=== PATIENT | female | born 1960 | race American Indian/Alaskan Native ===

== ENCOUNTER 2017-11-24 07:22 | Emergency (ER) | payer SELFPAY ==
--- NOTE | 2017-11-24 08:57 | Emergency Department Report ---
ED Back Pain/Injury HPI - General Chief Complaint: Extremity Injury, Lower Stated Complaint: LOWER MUSCLE/RT LEG PAIN Time Seen by Provider: 11/24/17 08:03 Source: patient Limitations: No Limitations - History of Present Illness Initial Comments: This 57-year-old -[place] female who presents with chronic low back pain with sciatica. Patient states she just moved here from [place] on Friday and during the drive here her back pain increased. She states now she is having sciatic nerve pain radiating from lower back to right thigh. Patient reports pain is 9 out of 10 on pain scale and a burning and throbbing sensation. Patient has a history of diabetes type 2 and hypertension. Patient states she was getting steroid injections and muscle relaxers while she was in [place]. Patient states muscle relaxers were packed away and she can't find a requesting a refill on muscle relaxers to help ease pain. Patient states she NSAID's alone with no improvement of symptoms. Patient is also requesting referral to a primary care provider to manage chronic pain. She also admits to having numbness and tingling but this is chronic and related to diabetes. She denies swelling, erythema, deformity, change in voiding or bowel pattern, and chest pain. MD Complaint: back pain Onset/Timin -: days(s) Similar Symptoms Previously: Yes Place: street Radiation: right leg Severity: severe Severity scale (0 -10): 9 Quality: burning, tingling Consistency: constant Improves With: none Worsens With: movement, sitting upright Context: unknown Associated Symptoms: denies other symptoms Treatments Prior to Arrival: NSAIDS - Related Data Previous Rx's Medication Instructions Recorded Last Taken Type Cyclobenzaprine [Flexeril 10 MG 10 mg PO TID PRN #15 tablet 11/24/17 Unknown Rx TAB] Ibuprofen [Motrin 800 MG tab] 800 mg PO Q8HR PRN #15 tablet 11/24/17 Unknown Rx Allergies Allergy/AdvReac Type Severity Reaction Status Date / Time No Known Allergies Allergy Unverified 11/24/17 07:37 ED Review of Systems ROS: Stated complaint: LOWER MUSCLE/RT LEG PAIN Other details as noted in HPI Constitutional: denies: chills, fever Respiratory: denies: cough, shortness of breath, wheezing Cardiovascular: denies: chest pain, palpitations Gastrointestinal: denies: abdominal pain, nausea, vomiting, diarrhea Musculoskeletal: back pain (low back pain radiating to right lower extremity). denies: joint swelling, arthralgia Skin: denies: rash, lesions Neurological: denies: headache, weakness, paresthesias Psychiatric: denies: anxiety, depression ED Back Pain Physical Exam - Exam General: Vital signs noted. No distress. Alert and acting appropriately. Back/Abdomen: Yes Sacroiliac Tenderness (tenderness above the right sacroiliac joint on deep palpation), Yes Straight Leg Raise Pain (right lower extremity), No Abdominal Tenderness, No Perithoracic Tenderness, No Perilumbar Tenderness, No Flank Tenderness Neuro: Yes Normal Sensation, Yes Normal DTR's, Yes Normal Gait, No Motor Weakness ED Course Vital Signs 11/24/17 07:37 Temperature 97.9 F Pulse Rate 94 H Respiratory 14 Rate Blood Pressure 175/85 O2 Sat by Pulse 97 Oximetry ED Medical Decision Making - Medical Decision Making This is a 57-year-old female who presents with chronic low back pain radiating to right lower extremity that was aggravated yesterday. Patient was examined by me. Vitals are normal and patient is in no acute distress. No radiograph obtained. Glucose 199. Patient is currently taken insulin and metformin for management of diabetes. On physical assessment is susceptible of acute low back pain with right lower extremity sciatica. Start ibuprofen and cyclobenzaprine for pain. Plan discussed with patient to discharge home and treat outpatient. Patient discharged home in stable condition. Referrals to [facility] for continuous of care. Patient should follow-up with [facility] in 2-3 days. Critical care attestation.: If time is entered above; I have spent that time in minutes in the direct care of this critically ill patient, excluding procedure time. ED Disposition Clinical Impression: Chronic low back pain with right-sided sciatica Qualifiers: Back pain laterality: bilateral Qualified Code(s): M54.41 - Lumbago with sciatica, right side; G89.29 - Other chronic pain Disposition: TO HOME OR SELFCARE Is pt being admited?: No Does the pt Need Aspirin: No Condition: Stable Instructions: Lumbar Radiculopathy (ED), Sciatica (ED) Additional Instructions: Rest Use ice or heat on affected area for 20 minutes and off for 2 hours. Take pain medication as needed for pain. Don't drive or operate heavy machinery while taking muscle relaxers because they may cause drowsiness. Follow up with Primary Care Provider is [facility] in 2-3 days for continuing care. Prescriptions: Cyclobenzaprine [Flexeril 10 MG TAB] 10 mg PO TID PRN #15 tablet PRN Reason: Muscle Spasm Ibuprofen [Motrin 800 MG tab] 800 mg PO Q8HR PRN #15 tablet PRN Reason: Pain , Severe (7-10) Referrals: [facility] [Outside] - 3-5 Days [facility] [Outside] - 3-5 Days [facility] [Outside] - 3-5 Days Time of Disposition: 09:02 Print Language: SINHALA
[2017-11-24 09:13] VITALS: BP 171/81
== END 2017-11-24 09:12 | disposition home or self-care (01) ==
LOC: ED 07:22
DX: M54.41 Lumbago with sciatica, right side (principal); G89.29 Other chronic pain; E11.9 Type 2 diabetes mellitus without complications; Z79.4 Long term (current) use of insulin; Z79.84 Long term (current) use of oral hypoglycemic drugs
CPT/HCPCS: 82962; 99282

== ENCOUNTER 2018-01-05 15:49 | Emergency (ER) | payer SELFPAY ==
[2018-01-05 16:02] VITALS: BP 199/89
[2018-01-05] MEDS ORDERED: DECADRON ONE (18:21)
[2018-01-05] MEDS ORDERED: ULTRAM ONE (18:22)
[2018-01-05] MEDS ORDERED: ULTRAM PO ONE (18:22)
--- NOTE | 2018-01-05 18:22 | Emergency Department Report ---
ED Back Pain/Injury HPI - General Chief Complaint: Back Pain/Injury Stated Complaint: BACK PAIN Time Seen by Provider: 01/05/18 18:10 Source: patient Limitations: No Limitations - History of Present Illness Initial Comments: Patient presents to the emergency department with low back pain for the last 1- 2 weeks. Patient states she has a chronic issue with back pain and recently moved from [place] and has not had any primary care follow-up while in [place]. Patient states she works at [employer] and is constantly bending and picking up things which exacerbates her back pain. Patient denies any issues with bladder or bowel. Patient also denies any numbness in the urogenital region region Complaint: back pain -: Gradual Place: home Radiation: none Severity: moderate Severity scale (0 -10): 6 Quality: dull Consistency: constant Improves With: sitting upright Worsens With: movement Associated Symptoms: denies other symptoms - Related Data Previous Rx's Medication Instructions Recorded Last Taken Type Cyclobenzaprine [Flexeril 10 MG 10 mg PO TID PRN #15 tablet 11/24/17 Unknown Rx TAB] Ibuprofen [Motrin 800 MG tab] 800 mg PO Q8HR PRN #15 tablet 11/24/17 Unknown Rx Acetaminophen/Codeine [Tylenol 1 tab PO Q6H PRN #15 tab 01/05/18 Unknown Rx /Codeine # 3 tab] Ibuprofen [Motrin] 800 mg PO Q8HR PRN #30 tablet 01/05/18 Unknown Rx predniSONE [Deltasone] 20 mg PO QDAY #15 tab 01/05/18 Unknown Rx Allergies Allergy/AdvReac Type Severity Reaction Status Date / Time No Known Allergies Allergy Unverified 11/24/17 07:37 ED Review of Systems ROS: Stated complaint: BACK PAIN Other details as noted in HPI Constitutional: denies: chills, fever Eyes: denies: eye pain, eye discharge, vision change ENT: denies: ear pain, throat pain Respiratory: denies: cough, shortness of breath, wheezing Cardiovascular: denies: chest pain, palpitations Endocrine: no symptoms reported Gastrointestinal: denies: abdominal pain, nausea, diarrhea Genitourinary: denies: urgency, dysuria, discharge Musculoskeletal: denies: back pain, joint swelling, arthralgia Skin: denies: rash, lesions Neurological: other (back pain). denies: headache, weakness, paresthesias Psychiatric: denies: anxiety, depression Hematological/Lymphatic: denies: easy bleeding, easy bruising ED Past Medical Hx - Past Medical History Hx Hypertension: Yes Hx Diabetes: Yes - Surgical History Hx Cholecystectomy: Yes Additional Surgical History: tubal ligation - Social History Smoking Status: Current Every Day Smoker Substance Use Type: None - Medications Home Medications: Home Medications Medication Instructions Recorded Confirmed Last Taken Type Cyclobenzaprine [Flexeril 10 MG 10 mg PO TID PRN #15 tablet 11/24/17 Unknown Rx TAB] Ibuprofen [Motrin 800 MG tab] 800 mg PO Q8HR PRN #15 tablet 11/24/17 Unknown Rx Acetaminophen/Codeine [Tylenol 1 tab PO Q6H PRN #15 tab 01/05/18 Unknown Rx /Codeine # 3 tab] Ibuprofen [Motrin] 800 mg PO Q8HR PRN #30 tablet 01/05/18 Unknown Rx predniSONE [Deltasone] 20 mg PO QDAY #15 tab 01/05/18 Unknown Rx ED Physical Exam - General Limitations: No Limitations General appearance: alert, in no apparent distress - Head Head exam: Present: atraumatic, normocephalic - Eye Eye exam: Present: normal appearance, PERRL, EOMI - ENT ENT exam: Present: mucous membranes moist - Neck Neck exam: Present: normal inspection - Respiratory Respiratory exam: Present: normal lung sounds bilaterally. Absent: respiratory distress, wheezes, rales, rhonchi - Cardiovascular Cardiovascular Exam: Present: regular rate, normal rhythm. Absent: systolic murmur, diastolic murmur, rubs, gallop - GI/Abdominal GI/Abdominal exam: Present: soft, normal bowel sounds. Absent: distended, tenderness - Extremities Exam Extremities exam: Present: normal inspection - Back Exam Back exam: Present: normal inspection, other (tenderness to palpation of the lumbar spine) - Neurological Exam Neurological exam: Present: alert, oriented X3 - Psychiatric Psychiatric exam: Present: normal affect, normal mood - Skin Skin exam: Present: warm, dry, intact, normal color. Absent: rash ED Course Vital Signs 01/05/18 15:58 Temperature 98.1 F Pulse Rate 114 H Respiratory 18 Rate Blood Pressure 199/89 O2 Sat by Pulse 98 Oximetry ED Medical Decision Making - Medical Decision Making Discussed plan of care WITH patient Critical care attestation.: If time is entered above; I have spent that time in minutes in the direct care of this critically ill patient, excluding procedure time. ED Disposition Clinical Impression: Low back strain, Chronic back pain Disposition: TO HOME OR SELFCARE Is pt being admited?: No Does the pt Need Aspirin: No Condition: Stable Instructions: Low Back Strain (ED), Back Pain (ED), Chronic Back Pain (ED) Additional Instructions: RETURN IF WORSE Prescriptions: Acetaminophen/Codeine [Tylenol /Codeine # 3 tab] 1 tab PO Q6H PRN #15 tab PRN Reason: PAIN Ibuprofen [Motrin] 800 mg PO Q8HR PRN #30 tablet PRN Reason: PAIN predniSONE [Deltasone] 20 mg PO QDAY #15 tab Referrals: PRIMARY CAREMD [Primary Care Provider] - 3-5 Days COLEEN PACHECO MD [Staff Physician] - 3-5 Days [facility] [Provider Group] - 3-[address] [facility] [Provider Group] - 3-5 Days Time of Disposition: 18:22
[2018-01-05] MEDS ORDERED: DECADRON IV ONE (18:23)
== END 2018-01-05 18:42 | disposition home or self-care (01) ==
LOC: ED 15:49
DX: S39.012A Strain of muscle, fascia and tendon of lower back, initial encounter (principal); G89.29 Other chronic pain; I10 Essential (primary) hypertension; E11.9 Type 2 diabetes mellitus without complications; F17.200 Nicotine dependence, unspecified, uncomplicated; Z90.49 Acquired absence of other specified parts of digestive tract; Z98.51 Tubal ligation status; X50.1XXA Overexertion from prolonged static or awkward postures, initial encounter; Y93.89 Activity, other specified; Y99.0 Civilian activity done for income or pay; Y92.69 Other specified industrial and construction area as the place of occurrence of the external cause
CPT/HCPCS: 96374; 99283; J1100

== ENCOUNTER 2018-01-26 07:44 | Emergency (ER) | payer OTHER ==
[2018-01-26 07:52] VITALS: BP 170/94
[2018-01-26] MEDS ORDERED: TORADOL IM ONE (08:13)
--- NOTE | 2018-01-26 08:14 | Emergency Department Report ---
ED Back Pain/Injury HPI - General Chief Complaint: Back Pain/Injury Stated Complaint: LOWER BACK PAIN Time Seen by Provider: 01/26/18 08:07 Source: patient Limitations: No Limitations - History of Present Illness MD Complaint: back pain -: Gradual Similar Symptoms Previously: Yes Place: home Radiation: none Severity: mild Consistency: intermittent Improves With: medication Associated Symptoms: denies other symptoms - Related Data Previous Rx's Medication Instructions Recorded Last Taken Type Naproxen Sodium [Aleve TAB] 220 mg PO Q8H PRN #12 tablet 01/26/18 Unknown Rx methylPREDNISolone [Medrol] 4 mg PO DAILY #1 tab.ds.pk 01/26/18 Unknown Rx Allergies Allergy/AdvReac Type Severity Reaction Status Date / Time No Known Allergies Allergy Verified 01/26/18 07:50 ED Review of Systems ROS: Stated complaint: LOWER BACK PAIN Other details as noted in HPI Constitutional: no symptoms reported. denies: chills Eyes: denies: eye pain ENT: denies: throat pain Respiratory: denies: cough, orthopnea Cardiovascular: denies: chest pain, palpitations Gastrointestinal: denies: nausea Genitourinary: denies: urgency, dysuria Musculoskeletal: back pain. denies: joint swelling, arthralgia Skin: denies: lesions Neurological: denies: weakness Psychiatric: denies: anxiety, depression Hematological/Lymphatic: denies: easy bleeding ED Past Medical Hx - Past Medical History Hx Hypertension: Yes Hx Diabetes: Yes Additional medical history: dm. hth. new to area - Surgical History Hx Cholecystectomy: Yes Additional Surgical History: tubal ligation - Social History Smoking Status: Current Every Day Smoker Substance Use Type: Alcohol - Medications Home Medications: Home Medications Medication Instructions Recorded Confirmed Last Taken Type Naproxen Sodium [Aleve TAB] 220 mg PO Q8H PRN #12 tablet 01/26/18 Unknown Rx methylPREDNISolone [Medrol] 4 mg PO DAILY #1 tab.ds.pk 01/26/18 Unknown Rx ED Physical Exam - General Limitations: No Limitations General appearance: alert, in no apparent distress - Head Head exam: Present: atraumatic - Eye Eye exam: Present: PERRL Pupils: Present: normal accommodation - ENT ENT exam: Present: mucous membranes moist - Neck Neck exam: Present: normal inspection - Respiratory Respiratory exam: Present: normal lung sounds bilaterally - Cardiovascular Cardiovascular Exam: Present: regular rate - GI/Abdominal GI/Abdominal exam: Present: soft - Rectal Rectal exam: Present: deferred - Extremities Exam Extremities exam: Present: normal inspection - Back Exam Back exam: Present: normal inspection, full ROM. Absent: tenderness, CVA tenderness (R), CVA tenderness (L), muscle spasm, paraspinal tenderness, vertebral tenderness - Neurological Exam Neurological exam: Present: alert, oriented X3, normal gait - Psychiatric Psychiatric exam: Present: normal affect, normal mood - Skin Skin exam: Present: warm, dry, intact ED Course Vital Signs 01/26/18 07:50 Temperature 97.8 F Pulse Rate 93 H Respiratory 18 Rate Blood Pressure 170/94 O2 Sat by Pulse 97 Oximetry - Reevaluation(s) Reevaluation #1: 01/26/18 08:20 to er w her chronic back pain no dysuria out of her meds she is asking for toradol and prednisone pt educated on use of these meds [facility]p given her dm and htn. referrals given for local pcp and clinics to help her get established, for she is new to the area. 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 ED Disposition Clinical Impression: Back pain, Diabetes 1.5, managed as type 2, Hypertension Disposition: TO HOME OR SELFCARE Is pt being admited?: No Does the pt Need Aspirin: No Condition: Stable Instructions: Low Back Strain (ED), Diabetes Mellitus Type 2 in Adults (ED), Hypertension (ED) Additional Instructions: warm compresses will help with pain meds as ordered diabetic diet hydrate well activity as tolerated follow up as we discussed see below Prescriptions: methylPREDNISolone [Medrol] 4 mg PO DAILY #1 tab.ds.pk Naproxen Sodium [Aleve TAB] 220 mg PO Q8H PRN #12 tablet PRN Reason: Pain Referrals: [facility] [Outside] - 3-5 Days [facility] [Outside] - 3-5 Days [facility] [Outside] - 3-5 Days JUNITO MONTENEGRO MD [Staff Physician] - 3-5 Days Time of Disposition: 08:12
== END 2018-01-26 08:30 | disposition home or self-care (01) ==
LOC: ED 07:44
DX: M54.89 Other dorsalgia (principal); E11.9 Type 2 diabetes mellitus without complications; I10 Essential (primary) hypertension; F17.200 Nicotine dependence, unspecified, uncomplicated; Z98.51 Tubal ligation status
CPT/HCPCS: 96372; 99282; J1885

== ENCOUNTER 2018-05-26 05:54 | Emergency (ER) | payer SELFPAY ==
--- NOTE | 2018-05-26 08:57 | Emergency Department Report ---
ED General Adult HPI - General Chief complaint: Back Pain/Injury Stated complaint: LOWER BACK PAIN Time Seen by Provider: 05/26/18 08:49 Source: patient Mode of arrival: Ambulatory Limitations: No Limitations - History of Present Illness Initial comments: Patient presents to the emergency department for lower back pain. Patient states she has a chronic history of low back pain and states that the last time she had a flareup and was resolved by taking steroids. Patient states she works at [employer] and does a lot of lifting. Patient denies any numbness or tingling in her legs. Patient also denies any pulsatile bladder or stool. -: Gradual Location: back Radiation: non-radiation Severity scale (0 -10): 6 Quality: aching, dull Consistency: constant Improves with: rest Worsens with: movement Associated Symptoms: denies other symptoms Treatments Prior to Arrival: none - Related Data Previous Rx's Medication Instructions Recorded Last Taken Type Naproxen [Naprosyn] 500 mg PO BID PRN #20 tablet 04/15/18 Unknown Rx Insulin Aspart Protam & Aspart 15 unit SQ WMHS #1 pen 04/20/18 Unknown Rx [NovoLOG Mix 70-30 Flexpen] Insulin Detemir [Levemir Flextouch] 50 unit SQ QHS #1 each 04/20/18 Unknown Rx Lisinopril [Prinivil] 10 mg PO DAILY #30 tablet 04/20/18 Unknown Rx Insulin NPH Hum/Reg Insulin Hm 15 unit SQ WMHS #1 vial 04/27/18 Unknown Rx [Novolin 70-30 100 Unit/ml Vial] Prednisone [predniSONE 10 mg 10 mg PO .TAPER #1 tab.ds.pk 05/26/18 Unknown Rx (6-Day Pack, 21 Tabs)] traMADol [Ultram] 50 mg PO Q6HR PRN #24 tablet 05/26/18 Unknown Rx Allergies Allergy/AdvReac Type Severity Reaction Status Date / Time No Known Allergies Allergy Verified 04/01/18 09:34 ED Review of Systems ROS: Stated complaint: LOWER BACK PAIN Other details as noted in HPI Constitutional: denies: chills, fever Eyes: denies: eye pain, eye discharge, vision change ENT: denies: ear pain, throat pain Respiratory: denies: cough, shortness of breath, wheezing Cardiovascular: denies: chest pain, palpitations Endocrine: no symptoms reported Gastrointestinal: denies: abdominal pain, nausea, diarrhea Genitourinary: denies: urgency, dysuria, discharge Musculoskeletal: back pain. denies: joint swelling, arthralgia Skin: denies: rash, lesions Neurological: denies: headache, weakness, paresthesias Psychiatric: denies: anxiety, depression Hematological/Lymphatic: denies: easy bleeding, easy bruising ED Past Medical Hx - Past Medical History Previous Medical History?: Yes Hx Hypertension: Yes Hx Diabetes: Yes Additional medical history: chronic lower back pain. sacticia. hep c - Surgical History Past Surgical History?: Yes Hx Cholecystectomy: Yes Additional Surgical History: tubal ligation - Social History Smoking Status: Current Every Day Smoker Substance Use Type: Alcohol - Medications Home Medications: Home Medications Medication Instructions Recorded Confirmed Last Taken Type Naproxen [Naprosyn] 500 mg PO BID PRN #20 tablet 04/15/18 Unknown Rx Insulin Aspart Protam & Aspart 15 unit SQ WMHS #1 pen 04/20/18 Unknown Rx [NovoLOG Mix 70-30 Flexpen] Insulin Detemir [Levemir Flextouch] 50 unit SQ QHS #1 each 04/20/18 Unknown Rx Lisinopril [Prinivil] 10 mg PO DAILY #30 tablet 04/20/18 Unknown Rx Insulin NPH Hum/Reg Insulin Hm 15 unit SQ WMHS #1 vial 04/27/18 Unknown Rx [Novolin 70-30 100 Unit/ml Vial] Prednisone [predniSONE 10 mg 10 mg PO .TAPER #1 tab.ds.pk 05/26/18 Unknown Rx (6-Day Pack, 21 Tabs)] traMADol [Ultram] 50 mg PO Q6HR PRN #24 tablet 05/26/18 Unknown Rx ED Physical Exam - General Limitations: No Limitations General appearance: alert, in no apparent distress - Head Head exam: Present: atraumatic, normocephalic - Eye Eye exam: Present: normal appearance, PERRL, EOMI - ENT ENT exam: Present: mucous membranes moist - Neck Neck exam: Present: normal inspection - Respiratory Respiratory exam: Present: normal lung sounds bilaterally. Absent: respiratory distress, wheezes, rales - Cardiovascular Cardiovascular Exam: Present: regular rate, normal rhythm. Absent: systolic murmur, diastolic murmur, rubs, gallop - GI/Abdominal GI/Abdominal exam: Present: soft, normal bowel sounds - Rectal Rectal exam: Present: deferred - Extremities Exam Extremities exam: Present: normal inspection - Back Exam Back exam: Present: other (paralumbar tenderness to palpation) - Neurological Exam Neurological exam: Present: alert, oriented X3, CN II-XII intact. Absent: motor sensory deficit - Psychiatric Psychiatric exam: Present: normal affect, normal mood - Skin Skin exam: Present: warm, dry, intact, normal color. Absent: rash ED Course Vital Signs 05/26/18 05:59 Temperature 97.9 F Pulse Rate 83 Respiratory 18 Rate Blood Pressure 166/90 O2 Sat by Pulse 98 Oximetry ED Medical Decision Making - Medical Decision Making Discussed plan of care with patient Critical care attestation.: If time is entered above; I have spent that time in minutes in the direct care of this critically ill patient, excluding procedure time. ED Disposition Clinical Impression: Lower back pain Disposition: - TO HOME OR SELFCARE Is pt being admited?: No Does the pt Need Aspirin: No Condition: Stable Instructions: Low Back Strain (ED) Additional Instructions: return if worse Prescriptions: Prednisone [predniSONE 10 mg (6-Day Pack, 21 Tabs)] 10 mg PO .TAPER #1 tab.ds.pk traMADol [Ultram] 50 mg PO Q6HR PRN #24 tablet PRN Reason: Pain Referrals: LEIA DON MD [Primary Care Provider] - 3-5 Days [facility] [Provider Group] - 3-5 Days [facility] [Provider Group] - 3-5 Days [facility] [Provider Group] - 3-5 Days [facility] [Provider Group] - 3-5 Days [facility] [Outside] - 3-5 Days Time of Disposition: 08:56
[2018-05-26 09:03] VITALS: BP 154/86
== END 2018-05-26 09:02 | disposition home or self-care (01) ==
LOC: ED 05:54
DX: M54.5 Low back pain (principal); I10 Essential (primary) hypertension; E11.9 Type 2 diabetes mellitus without complications; G89.29 Other chronic pain; F17.200 Nicotine dependence, unspecified, uncomplicated; Z98.51 Tubal ligation status; Z90.49 Acquired absence of other specified parts of digestive tract
CPT/HCPCS: 99281

== ENCOUNTER 2018-07-02 10:04 | Emergency (ER) | payer SELFPAY ==
[2018-07-02 10:39] VITALS: BP 161/92
[2018-07-02] MEDS ORDERED: DELTASONE PO ONE (11:22)
[2018-07-02] MEDS ORDERED: TORADOL IM ONE (11:22)
--- NOTE | 2018-07-02 11:27 | Emergency Department Report ---
ED Back Pain/Injury HPI - General Chief Complaint: Back Pain/Injury Stated Complaint: LOWER BACK PAIN Time Seen by Provider: 07/02/18 10:51 Source: patient Limitations: No Limitations - History of Present Illness Initial Comments: This is a 58-year-old female nontoxic, well nourished in appearance, no acute signs of distress presents to the ED with c/o of acute on chronic lower back pain. Patient stated that the past 2 days he was moving and developed this pain. Patient states has history of sciatica nerve pain which is similar symptoms as today. Patient states that pain radiates through to his right lower extremity. Patient denies any trauma. Denies any bladder or bowel instability. Patient denies any urinary symptoms. Denies any fever, chills, nausea, vomiting, headache, stiff neck, chest pain or shortness of breath. Patient denies any numbness or tingling. Denies any allergies. Denies significant past medical history. MD Complaint: back pain -: days(s) (2) Similar Symptoms Previously: Yes Place: home Radiation: right leg Severity: mild Severity scale (0 -10): 8 Quality: aching Consistency: intermittent Improves With: immobilization, sitting upright Worsens With: movement, walking Context: while lifting, turning/twisting Associated Symptoms: denies other symptoms. denies: confusion, weakness, chest pain, numbness, difficulty walking, cough, difficulty urinating, diaphoresis, incontinence, fever/chills, constipation, headaches, abdominal pain, loss of appetite, malaise, nausea/vomiting, rash, seizure, shortness of breath, syncope - Related Data Previous Rx's Medication Instructions Recorded Last Taken Type Naproxen [Naprosyn] 500 mg PO BID PRN #20 tablet 04/15/18 Unknown Rx Insulin Aspart Protam & Aspart 15 unit SQ WMHS #1 pen 04/20/18 Unknown Rx [NovoLOG Mix 70-30 Flexpen] Insulin Detemir [Levemir Flextouch] 50 unit SQ QHS #1 each 04/20/18 Unknown Rx Lisinopril [Prinivil] 10 mg PO DAILY #30 tablet 04/20/18 Unknown Rx Insulin NPH Hum/Reg Insulin Hm 15 unit SQ WMHS #1 vial 04/27/18 Unknown Rx [Novolin 70-30 100 Unit/ml Vial] Prednisone [predniSONE 10 mg 10 mg PO .TAPER #1 tab.ds.pk 05/26/18 Unknown Rx (6-Day Pack, 21 Tabs)] traMADol [Ultram] 50 mg PO Q6HR PRN #24 tablet 05/26/18 Unknown Rx Cyclobenzaprine [Flexeril] 10 mg PO QHS PRN #10 tablet 07/02/18 Unknown Rx Ibuprofen [Motrin] 600 mg PO Q8H PRN #20 tablet 07/02/18 Unknown Rx Allergies Allergy/AdvReac Type Severity Reaction Status Date / Time No Known Allergies Allergy Verified 07/02/18 10:05 ED Review of Systems ROS: Stated complaint: LOWER BACK PAIN Other details as noted in HPI Constitutional: denies: chills, fever Eyes: denies: eye pain, eye discharge, vision change ENT: denies: ear pain, throat pain Respiratory: denies: cough, shortness of breath, wheezing Cardiovascular: denies: chest pain, palpitations Endocrine: no symptoms reported Gastrointestinal: denies: abdominal pain, nausea, diarrhea Genitourinary: denies: urgency, dysuria, discharge Musculoskeletal: back pain. denies: joint swelling, arthralgia Skin: denies: rash, lesions Neurological: denies: headache, weakness, paresthesias Psychiatric: denies: anxiety, depression Hematological/Lymphatic: denies: easy bleeding, easy bruising ED Past Medical Hx - Past Medical History Hx Hypertension: Yes Hx Diabetes: Yes Additional medical history: chronic lower back pain. sacticia. hep c - Surgical History Past Surgical History?: Yes Hx Cholecystectomy: Yes Additional Surgical History: tubal ligation - Social History Smoking Status: Current Every Day Smoker Substance Use Type: None - Medications Home Medications: Home Medications Medication Instructions Recorded Confirmed Last Taken Type Naproxen [Naprosyn] 500 mg PO BID PRN #20 tablet 04/15/18 Unknown Rx Insulin Aspart Protam & Aspart 15 unit SQ WMHS #1 pen 04/20/18 Unknown Rx [NovoLOG Mix 70-30 Flexpen] Insulin Detemir [Levemir Flextouch] 50 unit SQ QHS #1 each 04/20/18 Unknown Rx Lisinopril [Prinivil] 10 mg PO DAILY #30 tablet 04/20/18 Unknown Rx Insulin NPH Hum/Reg Insulin Hm 15 unit SQ WMHS #1 vial 04/27/18 Unknown Rx [Novolin 70-30 100 Unit/ml Vial] Prednisone [predniSONE 10 mg 10 mg PO .TAPER #1 tab.ds.pk 05/26/18 Unknown Rx (6-Day Pack, 21 Tabs)] traMADol [Ultram] 50 mg PO Q6HR PRN #24 tablet 05/26/18 Unknown Rx Cyclobenzaprine [Flexeril] 10 mg PO QHS PRN #10 tablet 07/02/18 Unknown Rx Ibuprofen [Motrin] 600 mg PO Q8H PRN #20 tablet 07/02/18 Unknown Rx ED Physical Exam - General Limitations: No Limitations General appearance: alert, in no apparent distress - Head Head exam: Present: atraumatic, normocephalic - Neck Neck exam: Present: normal inspection, full ROM - Extremities Exam Extremities exam: Present: normal inspection, full ROM - Back Exam Back exam: Present: normal inspection, full ROM, paraspinal tenderness (lumbar paraspinal bilateral). Absent: tenderness, CVA tenderness (R), CVA tenderness (L), muscle spasm, vertebral tenderness, rash noted - Expanded Back Exam Expanded Back exam: Absent: saddle anesthesia Back exam: Negative Straight Leg Raising: Right, Left - Neurological Exam Neurological exam: Present: alert, oriented X3, normal gait - Psychiatric Psychiatric exam: Present: normal affect, normal mood - Skin Skin exam: Present: warm, dry, intact, normal color. Absent: rash ED Course Vital Signs 07/02/18 10:37 Temperature 98.0 F Pulse Rate 82 Respiratory 18 Rate Blood Pressure 161/92 O2 Sat by Pulse 98 Oximetry - Reevaluation(s) Reevaluation #1: 07/02/18 11:25 Patient is speaking in full sentences with no signs of distress noted. ED Medical Decision Making - Medical Decision Making This is a 58-year-old female that presents with low back strain. Patient is stable was examined by me. There is no spinal tenderness. There is no cauda equina syndrome during examination. No bladder or bowel instability. Patient received Toradol 60 mg IM in the ED which stated that her symptoms has resolved and subsided. Patient is discharged with muscle relaxant and Motrin. Patient was instructed not to operate any machinery while taking muscle relaxant as they cause her drowsiness. Patient was referred to Follow-up with a primary care doctor in 3-5 days or if symptoms worsen and continue return to emergency room as soon as possible. At time of discharge, the patient does not seem toxic or ill in appearance. No acute signs of distress noted. Patient agrees to discharge treatment plan of care. No further questions noted by the patient. This chart is dictated with using [employer] Critical care attestation.: If time is entered above; I have spent that time in minutes in the direct care of this critically ill patient, excluding procedure time. ED Disposition Clinical Impression: Low back strain Qualifiers: Encounter type: initial encounter Qualified Code(s): S39.012A - Strain of muscle, fascia and tendon of lower back, initial encounter Disposition: TO HOME OR SELFCARE Is pt being admited?: No Does the pt Need Aspirin: No Condition: Stable Instructions: Low Back Strain (ED), Cyclobenzaprine (By mouth) Additional Instructions: Follow-up with your primary care doctor in 3-5 days or if symptoms worsen such as bladder or bowel stability, chest pain, short of breath, numbness or tingling sensation in extremities, headache, dizziness, visual changes, nausea vomiting, or abdominal pain, return back to emergency room as was possible. Take ibuprofen and Flexeril as prescribed. Do not operate heavy machinery while taking Flexeril due to sedation Prescriptions: Cyclobenzaprine [Flexeril] 10 mg PO QHS PRN #10 tablet PRN Reason: Muscle Spasm Ibuprofen [Motrin] 600 mg PO Q8H PRN #20 tablet PRN Reason: Pain Referrals: [facility] MD CHINEDU [Primary Care Provider] - 3-5 Days PRIMARY MD ABDOUL [Referring] - 3-5 Days SABRA MOSELEY MD [Staff Physician] - 3-5 Days [facility] [Outside] - 3-5 Days [facility] [Outside] - 3-5 Days Forms: Work/School Release Form(ED)
== END 2018-07-02 11:54 | disposition home or self-care (01) ==
LOC: ED 10:04
DX: S39.012A Strain of muscle, fascia and tendon of lower back, initial encounter (principal); I10 Essential (primary) hypertension; E11.9 Type 2 diabetes mellitus without complications; F17.200 Nicotine dependence, unspecified, uncomplicated; Z90.49 Acquired absence of other specified parts of digestive tract; X58.XXXA Exposure to other specified factors, initial encounter; Y93.89 Activity, other specified; Y92.89 Other specified places as the place of occurrence of the external cause; Y99.8 Other external cause status
CPT/HCPCS: 96372; 99282; J1885; J7512

== ENCOUNTER 2018-09-18 12:04 | Emergency (ER) | payer OTHER ==
[2018-09-18 12:41] VITALS: BP 170/82
--- NOTE | 2018-09-18 12:44 | Event Note ---
ED Screening Note ED Screening Note: MANY COMPLAINTS 1. A/C R SHOULDER PAIN- XRAY 04/07; NO NEW TRAUMA; DID NOT SEE ORTHO BC NO MONEY; HAS HAD NAPROSYN, MOTRIN, TRAMADOL, FLEXERIL. 2. NEED DM MEDS- THE FREE ONE SHE SAID 3. NEUROPATHY PAIN LLE RX METFORMIN INSULIN This initial assessment/diagnostic orders/clinical plan/treatment(s) is/are sub ject to change based on patients health status, clinical progression and re- assessment by fellow clinical providers in the ED. Further treatment and workup at subsequent clinical providers discretion. Patient/guardian urged not to elope from the ED as their condition may be serious if not clinically assessed and managed. Initial orders include: NEEDS EDUCATION ON FOLLOW UP AND DM CONTROL REFILLS PLAN FOR PAIN MANAGEMENT SHARON BARTLETT
--- NOTE | 2018-09-18 13:15 | Emergency Department Report ---
ED General Adult HPI - General Chief complaint: Extremity Problem,Nontraumatic Stated complaint: R ARM/SHOULDER PAIN/L LEG TINGLING Time Seen by Provider: 09/18/18 12:39 Source: patient Mode of arrival: Ambulatory Limitations: No Limitations - History of Present Illness Initial comments: Mrs. Pricthett presents to ER for chronic shoulder pain due to arthritis. Sh wanted to know what medications OTC she coudl take. Unable to f/u with ortho due to lack of insurance. Requests refill of insulin. -: Gradual, month(s) (5) Location: right, upper extremity Severity scale (0 -10): 10 Quality: aching Worsens with: movement Associated Symptoms: denies other symptoms - Related Data Previous Rx's Medication Instructions Recorded Last Taken Type Insulin Aspart Protam & Aspart 15 unit SQ WMHS #1 pen 04/20/18 Unknown Rx [NovoLOG Mix 70-30 Flexpen] Insulin Detemir [Levemir Flextouch] 50 unit SQ QHS #1 each 04/20/18 Unknown Rx Lisinopril [Prinivil] 10 mg PO DAILY #30 tablet 04/20/18 Unknown Rx Insulin NPH Hum/Reg Insulin Hm 15 unit SQ WMHS #1 vial 04/27/18 Unknown Rx [Novolin 70-30 100 Unit/ml Vial] Insulin NPH/Regular [NovoLIN 70/30] 10 unit SUB-Q BID #1 vial 09/18/18 Unknown Rx Allergies Allergy/AdvReac Type Severity Reaction Status Date / Time No Known Allergies Allergy Verified 07/02/18 10:05 ED Review of Systems ROS: Stated complaint: R ARM/SHOULDER PAIN/L LEG TINGLING Other details as noted in HPI Comment: All other systems reviewed and negative Constitutional: denies: fever, malaise Respiratory: denies: cough, shortness of breath Cardiovascular: denies: chest pain ED Past Medical Hx - Past Medical History Previous Medical History?: Yes Hx Hypertension: Yes Hx Diabetes: Yes Additional medical history: chronic lower back pain. sacticia. hep c - Surgical History Past Surgical History?: Yes Hx Cholecystectomy: Yes Additional Surgical History: tubal ligation - Social History Smoking Status: Current Every Day Smoker Substance Use Type: Alcohol - Medications Home Medications: Home Medications Medication Instructions Recorded Confirmed Last Taken Type Insulin Aspart Protam & Aspart 15 unit SQ WMHS #1 pen 04/20/18 Unknown Rx [NovoLOG Mix 70-30 Flexpen] Insulin Detemir [Levemir Flextouch] 50 unit SQ QHS #1 each 04/20/18 Unknown Rx Lisinopril [Prinivil] 10 mg PO DAILY #30 tablet 04/20/18 Unknown Rx Insulin NPH Hum/Reg Insulin Hm 15 unit SQ WMHS #1 vial 04/27/18 Unknown Rx [Novolin 70-30 100 Unit/ml Vial] Insulin NPH/Regular [NovoLIN 70/30] 10 unit SUB-Q BID #1 vial 09/18/18 Unknown Rx ED Physical Exam - General Limitations: No Limitations General appearance: alert, in no apparent distress - Head Head exam: Present: atraumatic, normocephalic - Eye Eye exam: Present: normal appearance - ENT ENT exam: Present: mucous membranes moist - Neck Neck exam: Present: normal inspection, full ROM - Respiratory Respiratory exam: Present: normal lung sounds bilaterally. Absent: respiratory distress - Cardiovascular Cardiovascular Exam: Present: regular rate, normal rhythm, normal heart sounds. Absent: systolic murmur, diastolic murmur, rubs, gallop - GI/Abdominal GI/Abdominal exam: Present: soft, normal bowel sounds. Absent: distended, tenderness, guarding, rebound - Extremities Exam Extremities exam: Present: normal inspection - Back Exam Back exam: Present: normal inspection - Neurological Exam Neurological exam: Present: alert, oriented X3 - Psychiatric Psychiatric exam: Present: normal affect, normal mood - Skin Skin exam: Present: warm, dry, intact, normal color. Absent: rash ED Course Vital Signs 09/18/18 12:39 Temperature 98.4 F Pulse Rate 105 H Respiratory 16 Rate Blood Pressure 170/82 [Right] O2 Sat by Pulse 97 Oximetry ED Medical Decision Making - Medical Decision Making 1. right shoulder pain hx of DJD recommended OTC tylenol 2. medication refill of insulin, prescription 70/30 provided Critical care attestation.: If time is entered above; I have spent that time in minutes in the direct care of this critically ill patient, excluding procedure time. ED Disposition Clinical Impression: Chronic right shoulder pain, Medication refill Disposition: TO HOME OR SELFCARE Is pt being admited?: No Does the pt Need Aspirin: No Condition: Stable Prescriptions: Insulin NPH/Regular [NovoLIN 70/30] 10 unit SUB-Q BID #1 vial Referrals: [facility] [Outside] - 3-5 Days
== END 2018-09-18 13:30 | disposition home or self-care (01) ==
LOC: ED 12:04
DX: G89.29 Other chronic pain (principal); M25.511 Pain in right shoulder; I10 Essential (primary) hypertension; E11.9 Type 2 diabetes mellitus without complications; F17.200 Nicotine dependence, unspecified, uncomplicated; Z76.0 Encounter for issue of repeat prescription; Z79.4 Long term (current) use of insulin; Z98.51 Tubal ligation status; Z90.49 Acquired absence of other specified parts of digestive tract
CPT/HCPCS: 82962

== ENCOUNTER 2018-10-05 09:47 | Emergency (ER) | payer SELFPAY ==
[2018-10-05 10:02] VITALS: BP 176/97
--- NOTE | 2018-10-05 10:49 | Emergency Department Report ---
ED Upper Extremity Inj HPI - General Chief Complaint: Shoulder Injury Stated Complaint: R SHOULDER PAIN Time Seen by Provider: 10/05/18 10:43 Source: patient Mode of arrival: Ambulatory Limitations: No Limitations - History of Present Illness Initial Comments: Patient is 58 years old female with history of hypertension and diabetes. Patient presented to the ER complaining of right shoulder pain for 1 month. Patient denied any injury. No fever or chills. No shortness of breath, chest pain, cough, nausea or vomiting. MD Complaint: Injury to:: right, shoulder - Related Data Previous Rx's Medication Instructions Recorded Last Taken Type Insulin Aspart Protam & Aspart 15 unit SQ WMHS #1 pen 04/20/18 Unknown Rx [NovoLOG Mix 70-30 Flexpen] Insulin Detemir [Levemir Flextouch] 50 unit SQ QHS #1 each 04/20/18 Unknown Rx Lisinopril [Prinivil] 10 mg PO DAILY #30 tablet 04/20/18 Unknown Rx Insulin NPH Hum/Reg Insulin Hm 15 unit SQ WMHS #1 vial 04/27/18 Unknown Rx [Novolin 70-30 100 Unit/ml Vial] Insulin NPH/Regular [NovoLIN 70/30] 10 unit SUB-Q BID #1 vial 09/18/18 Unknown Rx Allergies Allergy/AdvReac Type Severity Reaction Status Date / Time No Known Allergies Allergy Verified 07/02/18 10:05 ED Review of Systems ROS: Stated complaint: R SHOULDER PAIN Other details as noted in HPI Comment: All other systems reviewed and negative Constitutional: denies: chills, fever Respiratory: denies: cough, orthopnea, shortness of breath, SOB with exertion, SOB at rest, wheezing Cardiovascular: denies: chest pain, palpitations Gastrointestinal: denies: abdominal pain, nausea, vomiting Musculoskeletal: denies: back pain ED Past Medical Hx - Past Medical History Previous Medical History?: Yes Hx Hypertension: Yes Hx Diabetes: Yes Additional medical history: chronic lower back pain. sacticia. hep c - Surgical History Past Surgical History?: Yes Hx Cholecystectomy: Yes Additional Surgical History: tubal ligation - Social History Smoking Status: Current Some Day Smoker Substance Use Type: Alcohol - Medications Home Medications: Home Medications Medication Instructions Recorded Confirmed Last Taken Type Insulin Aspart Protam & Aspart 15 unit SQ WMHS #1 pen 04/20/18 Unknown Rx [NovoLOG Mix 70-30 Flexpen] Insulin Detemir [Levemir Flextouch] 50 unit SQ QHS #1 each 04/20/18 Unknown Rx Lisinopril [Prinivil] 10 mg PO DAILY #30 tablet 04/20/18 Unknown Rx Insulin NPH Hum/Reg Insulin Hm 15 unit SQ WMHS #1 vial 04/27/18 Unknown Rx [Novolin 70-30 100 Unit/ml Vial] Insulin NPH/Regular [NovoLIN 70/30] 10 unit SUB-Q BID #1 vial 09/18/18 Unknown Rx ED Physical Exam - General Limitations: No Limitations General appearance: alert, in no apparent distress - Head Head exam: Present: atraumatic, normocephalic, normal inspection - Eye Eye exam: Present: normal appearance - ENT ENT exam: Present: normal exam, normal orophraynx, mucous membranes moist - Neck Neck exam: Present: normal inspection, full ROM. Absent: tenderness, meningismus, lymphadenopathy, thyromegaly - Respiratory Respiratory exam: Present: normal lung sounds bilaterally - Cardiovascular Cardiovascular Exam: Present: regular rate, normal rhythm, normal heart sounds - GI/Abdominal GI/Abdominal exam: Present: soft, normal bowel sounds. Absent: distended, tenderness, guarding, rebound, rigid - Extremities Exam Extremities exam: Present: normal inspection - Expanded Upper Extremity Exam Right Shoulder Exam: Present: normal inspection, tenderness. Absent: full ROM, swelling, abrasion, laceration, ecchymosis, deformity, crepidus, dislocation, erythema, tenderness over AC joint Upper Arm exam: Present: normal inspection, full ROM - Back Exam Back exam: Present: normal inspection, full ROM - Neurological Exam Neurological exam: Present: alert, oriented X3, CN II-XII intact, normal gait - Skin Skin exam: Present: warm, intact, normal color ED Course Vital Signs 10/05/18 09:59 Temperature 97.8 F Pulse Rate 91 H Respiratory 16 Rate Blood Pressure 176/97 O2 Sat by Pulse 98 Oximetry ED Medical Decision Making - Radiology Data Radiology results: report reviewed - Medical Decision Making Patient is 58 years old female with history of hypertension and diabetes. Patient presented to the ER complaining of right shoulder pain for 1 month. Patient denied any injury. No fever or chills. No shortness of breath, chest pain, cough, nausea or vomiting. Shoulder x-ray is unremarkable. Patient given a prescription for Medrol pack and TRAMADOL. PATIENT ADVISED TO FOLLOW UP WITH HER PRIMARY CARE PHYSICIAN IN THE NEXT 2-3 DAYS AND TO RETURN TO THE ER IF SYMPTOMS ARE NOT IMPROVED. Critical care attestation.: If time is entered above; I have spent that time in minutes in the direct care of this critically ill patient, excluding procedure time. ED Disposition Clinical Impression: Shoulder pain, right Disposition: DC-01 TO HOME OR SELFCARE Is pt being admited?: No Condition: Stable Instructions: Rotator Cuff Tendinitis (ED), Arthralgia (ED) Referrals: PRIMARY CARE, [Referring] - 3-5 Days
--- NOTE | 2018-10-05 11:18 | XRay Report ---
RIGHT SHOULDER, 3 VIEWS: HISTORY: right shoulder pain. Normal bone mineralization. No acute osseous injury or joint pathology is detected. The soft tissues are unremarkable. No significant change since 04/15/18. IMPRESSION: Right shoulder within normal limits.
== END 2018-10-05 11:43 | disposition home or self-care (01) ==
LOC: ED 09:47
DX: M25.511 Pain in right shoulder (principal); I10 Essential (primary) hypertension; E11.9 Type 2 diabetes mellitus without complications; G89.29 Other chronic pain; F17.200 Nicotine dependence, unspecified, uncomplicated; Z98.51 Tubal ligation status; Z90.49 Acquired absence of other specified parts of digestive tract; Z79.899 Other long term (current) drug therapy
CPT/HCPCS: 99283

== ENCOUNTER 2019-09-19 03:55 | Emergency (ER) | payer SELFPAY ==
--- NOTE | 2019-09-19 07:40 | Emergency Department Report ---
Chief Complaint: Back Pain/Injury Stated Complaint: LOWER BACK PAIN Time Seen by Provider: 09/19/19 07:24 - HPI History of Present Illness: This is a 59-year-old -[place] female who presents to the emergency room with chronic low back pain. Past medical history of diabetes type 2, hypertension, chronic low back pain, sciatica, and hepatitis C. Patient states she was given a 6-day treatment by her PCP a [facility] but unable to follow-up because she started a new job. She is requesting refills on medications provided by PCP. Patient reports pain is currently 3 out of 10 while sitting and worse with ambulation. Reports pain as achy intensity and nonradiating. She denies recent injury, paresthesias, swelling, bruising, or weakness. - ROS Review of Systems: Musculoskeletal, low back pain - Exam Physical Exam: - General Limitations: No Limitations General appearance: alert, in no apparent distress - Neck Neck exam: Present: normal inspection, full ROM. Absent: lymphadenopathy - Respiratory Respiratory exam: Present: normal lung sounds bilaterally. Absent: respiratory distress - Cardiovascular Cardiovascular Exam: Present: regular rate, normal rhythm. Absent: systolic murmur, diastolic murmur, rubs, gallop - GI/Abdominal GI/Abdominal exam: Present: soft, normal bowel sounds - Extremities Exam Extremities exam: Present: Bilateral L-spine TTP, no midline tenderness, no step-off or deformity, negative straight leg test - Back Exam Back exam: Present: normal inspection - Neurological Exam Neurological exam: Present: alert, oriented X3 - Psychiatric Psychiatric exam: Present: normal affect, normal mood - Skin Skin exam: Present: warm, dry, intact, normal color. Absent: rash MSE screening note: Focused history and physical exam performed. Due to findings the following was ordered: ED Medical Decision Making - Medical Decision Making This is a 59-year-old female presents with chronic low back pain. Patient in no acute distress. Past medical history of diabetes type 2, hypertension, chronic low back pain, sciatica, and hepatitis C. Negative midline tenderness on exam. There is mild bilateral L-spine TTP, no step-off, no deformity. Given history and exam there is low suspicion for spine fracture or other acute spinal syndrome. There are no signs for concerns of trauma. Patient has blood pressure and diabetes medication will take it discharge. Patient instructed to follow back up with her PCP for pain medication refills for chronic pain. She was given strict return her precautions for delayed possible symptoms. Patient discharged with prompt follow-up with primary care physician. ED Disposition for MSE Disposition: MED SCREENING EXAM-LEFT Is pt being admited?: No Condition: Stable Referrals: FRANKY SCHAFER MD [Staff Physician] - 3-5 Days [facility] [Outside] - 3-5 Days [facility] [Outside] - 3-5 Days [facility] [Provider Group] - 3-5 Days Time of Disposition: 07:41
[2019-09-19 07:46] VITALS: BP 195/96
== END 2019-09-19 07:50 | disposition left against medical advice (07) ==
LOC: ED 03:55
DX: G89.29 Other chronic pain (principal); M54.5 Low back pain
CPT/HCPCS: 99281

== ENCOUNTER 2020-02-21 10:24 | Outpatient (CLI) | payer OTHER ==
--- NOTE | 2020-02-21 15:27 | XRay Report ---
CLINICAL DATA: CHRONIC LOWER BACK PAIN LUMBAGO WITH SCIATICA TECHNICAL DATA: AP and lateral views lumbar spine. FINDINGS: The bone mineralization is normal. Vertebral body heights are normal. Intervertebral disc spaces are narrowed throughout the lumbar spine with 0.75 cm anterolisthesis of L3 relation to L4. Moderate face t degenerative changes are present Pedicles and spinous processes are normal in alignment. SI joints and sacrum are normal. IMPRESSION: Degenerative changes lumbar spine as noted Signer Name: Juno Camacho MD Signed: 02/21/2020 3:23 PM Workstation Name: [id number]
== END 2020-02-21 10:25 | disposition home or self-care (01) ==
LOC: XRAY 10:24
PROVIDERS: ATTEND Internal Medicine
DX: M47.816 Spondylosis without myelopathy or radiculopathy, lumbar region (principal); M48.061 Spinal stenosis, lumbar region without neurogenic claudication; E78.5 Hyperlipidemia, unspecified; E66.9 Obesity, unspecified; B19.20 Unspecified viral hepatitis C without hepatic coma; M23.51 Chronic instability of knee, right knee; F31.89 Other bipolar disorder
CPT/HCPCS: 72100